=== PATIENT | male | born 1990 | race Caucasian/White ===

== ENCOUNTER 2018-04-22 08:04 | Emergency (ER) | payer OTHER, SELFPAY ==
[2018-04-22 08:52] VITALS: BP 120/69; PULSE 65; RESP 20; TEMP 36.7; O2SAT 99; BMI 22.4
--- NOTE | 2018-04-22 10:00 | ED.EAR ---
HPI - Ear Problem General Chief complaint: Ear Stated complaint: rt ear infection Time Seen by Provider: 04/22/18 09:42 Source: patient Mode of arrival: ambulatory Limitations: no limitations History of Present Illness HPI Narrative: Patient is a 27-year-old male who presents with right ear pain has been ongoing since this morning. His son has been sick with bilateral ear infections. He has had a head cold and sinus congestion as well. Has no cough. MD Complaint: ear pain Related Data Previous Rx's Medication Instructions Recorded amoxicillin 500 mg PO TID 7 Days #21 cap 04/22/18 Allergies Allergy/AdvReac Type Severity Reaction Status Date / Time No Known Drug Allergies Allergy Verified 04/22/18 08:52 Review of Systems Review of Systems All systems reviewed & are unremarkable except as noted in HPI and below Constitutional Denies chills, Denies fever(s), Denies lethargy and Denies weakness ENT Ears, Nose, Mouth, and Throat: Reports as per HPI Cardiovascular Denies chest pain, Denies irregular heart rhythm, Denies lightheadedness, Denies palpitations and Denies orthopnea Gastrointestinal Gastrointestinal: Denies abdominal pain, Denies change in bowel habits, Denies diarrhea, Denies nausea and Denies vomiting Integumentary/Breasts Denies pruritus, Denies erythema, Denies rash and Denies wounds Neurologic Denies weakness Endocrine Denies palpitations [facility] Medical History Healthy adult (Acute) Social History Smoking Status: Former smoker Exam Initial Vital Signs Initial Vital Signs: Vital Signs Temperature 98.1 F 04/22/18 08:52 Pulse Rate 65 04/22/18 08:52 Respiratory Rate 20 04/22/18 08:52 Blood Pressure 120/69 04/22/18 08:52 Pulse Oximetry 99 04/22/18 08:52 GENERAL: Well-appearing, well-nourished and in no acute distress. HEENT: Head atraumatic,EOMI, pupils reactive, face symmetric, neck is supple no meningeal signs EARS: Right tympanic membrane is visualized erythematous and bulging canal is clear without discharge no pain over mastoid left ear is within normal limits PHARYNX: No erythema, no tonsillar exudate, no cervical lymphadenopathy CARDIOVASCULAR: Regular rate and rhythm without murmurs, rubs or gallops. RESPIRATORY: Breath sounds equal bilaterally, no wheezes rales or rhonchi. EXTREMITIES: Normal range of motion, no clubbing or edema. Neurovascularly intact NEUROLOGICAL: Alert and oriented x4.Normal gait and speech. SKIN: Warm, dry, no laceration, no petechiae, no rashes or lesions. Course Vital Signs - 8 hr 04/22/18 08:52 Temperature 98.1 F Pulse Rate 65 Respiratory Rate 20 Blood Pressure 120/69 Pulse Oximetry 99 Discharge Plan Departure Patient Disposition: Home Clinical Impression: Otitis media Discharge Date/Time: 04/22/18 10:00 Instructions: Middle Ear Infection Activity Restrictions/Additional Instructions: *You have been diagnosed with right ear infection *What to do: Rest *Continue to take medications as directed Tylenol Motrin for fever as directed Amoxicillin 500 3 times a day *Follow up with your primary care provider in 2-3 days *Return to ER if you should have any new, worsening or concerning symptoms Prescriptions: New amoxicillin 500 mg capsule 500 mg PO TID 7 Days Qty: 21 RF: 0 Referrals: [facility] [Outside]
== END 2018-04-22 10:00 | disposition home or self-care (01) ==
PROVIDERS: Emergency Provider Emergency Medicine
DX: H66.91 Otitis media, unspecified, right ear (principal)
CPT/HCPCS: 99282

== ENCOUNTER 2018-07-28 12:09 | Emergency (ER) | payer OTHER, SELFPAY ==
[2018-07-28 12:10] VITALS: BP 131/75; PULSE 73; RESP 18; TEMP 37.1; O2SAT 100
--- NOTE | 2018-07-28 12:24 | ED.URI ---
HPI - URI/Sore Throat <PABLO Guzman - Last Filed: 07/28/18 21:44> General Chief Complaint: Upper Respiratory Symptoms Stated Complaint: Ear and sinus infection Time Seen by Provider: 07/28/18 12:22 Source: patient Mode of arrival: ambulatory Limitations: no limitations History of Present Illness HPI Narrative: 27-year-old healthy male that is a nonsmoker here for complaint of cough and nasal congestion and pain into his sinus area and into his teeth over the past week. He states he has had a fever. He has had purulent nasal drainage. Also has pain to his left ear. He has been using Mucinex and Sudafed at home for his symptoms. He reports that his family has had cold-like symptoms as well. Positive p.o. intake. He denies any drainage from the left ear. No other concerns or complaints at this time. MD Complaint: fever, nasal congestion and sinus pain Related Data Previous Rx's Medication Instructions Recorded amoxicillin-pot clavulanate 1 tab PO BID #14 tab 07/28/18 Allergies Allergy/AdvReac Type Severity Reaction Status Date / Time No Known Drug Allergies Allergy Verified 04/22/18 08:52 Review of Systems <PABLO Guzman - Last Filed: 07/28/18 21:44> Constitutional Denies chills, Reports fever(s), Denies lethargy and Denies weakness Eyes Denies change in vision, Denies eye discharge, Denies irritation and Denies loss of vision ENT Comments: Nasal congestion and sinus pain with left ear pain Cardiovascular Denies chest pain, Denies irregular heart rhythm, Denies lightheadedness, Denies palpitations, Denies dyspnea, Denies dyspnea on exertion and Denies orthopnea Respiratory Reports cough, Denies dyspnea, Denies dyspnea on exertion and Denies wheezing Gastrointestinal Gastrointestinal: Denies abdominal pain, Denies change in bowel habits, Denies diarrhea, Denies nausea and Denies vomiting Genitourinary Denies hematuria, Denies flank pain, Denies urinary incontinence and Denies urinary urgency Musculoskeletal Denies back pain, Denies muscle weakness, Denies numbness and Denies tingling Integumentary/Breasts Denies pruritus, Denies erythema, Denies rash and Denies wounds Neurologic Denies confusion, Denies loss of vision, Denies numbness, Denies tingling and Denies weakness Psychiatric Denies anxiety, Denies confusion, Denies depression, Denies homicidal ideation and Denies suicidal ideation Endocrine Denies palpitations Hematologic/Lymphatic Denies easy bruising Allergic/Immunologic Denies wheezing Exam <PABLO Guzman - Last Filed: 07/28/18 21:44> Initial Vital Signs Initial Vital Signs: Vital Signs Temperature 98.7 F 07/28/18 12:10 Pulse Rate 73 07/28/18 12:10 Respiratory Rate 18 07/28/18 12:10 Blood Pressure 131/75 07/28/18 12:10 Pulse Oximetry 100 07/28/18 12:10 HENMT Ears: TM normal on the right and left TM abnormal (Left tympanic membrane is erythematous and bulging) Face and sinus: tenderness (Tenderness to bilateral maxillary sinus area with pain radiating in to his upper teeth) Mouth: oral mucosae normal, oropharynx normal and moist mucous membranes Eyes Conjunctivae: conjunctivae normal Sclera: sclerae normal Pupils: PERRL EOM: EOM intact bilaterally Neck Neck: normal visual inspection, trachea midline, No lymphadenopathy, No midline deformity and No JVD Lymphatic: No lymphedema Resp Effort & Inspection: normal respiratory effort, able to speak in complete sentences, no respiratory distress and no use of accessory muscles Auscultation: clear to auscultation bilaterally, no rales, no rhonchi and no wheezes Cardio Rate: regular rate Rhythm: regular rhythm Heart Sounds: no click, no gallops, no murmurs and no rubs Skin General: no rashes or lesions noted, No jaundice and No petechiae Neuro General: alert, oriented x3, gait normal and no focal motor deficits Speech: speech normal <Shaila Clark DO - Last Filed: 07/31/18 07:17> Initial Vital Signs Initial Vital Signs: Vital Signs Temperature 98.7 F 07/28/18 12:10 Pulse Rate 73 07/28/18 12:10 Respiratory Rate 18 07/28/18 12:10 Blood Pressure 131/75 07/28/18 12:10 Pulse Oximetry 100 07/28/18 12:10 Course <PABLO Guzman - Last Filed: 07/28/18 21:44> Vital Signs - 8 hr 07/28/18 12:10 Temperature 98.7 F Pulse Rate 73 Respiratory Rate 18 Blood Pressure 131/75 Pulse Oximetry 100 <Shaila Clark DO - Last Filed: 07/31/18 07:17> Vital Signs - 8 hr 07/28/18 12:10 Temperature 98.7 F Pulse Rate 73 Respiratory Rate 18 Blood Pressure 131/75 Pulse Oximetry 100 MDM - URI/Sore Throat <PABLO Guzman - Last Filed: 07/28/18 21:44> [facility] Narrative Medical decision making narrative: Signs and symptoms present as viral upper respiratory infection with secondary bacterial sinusitis and left otitis media. He is placed on Augmentin. Saline irrigation to nasal passages to help with congestion along with hot showers. He may continue to use the Mucinex as prescribed. Is recommended for him to stop taking the Sudafed has been using the Sudafed over the past 5 days. Plenty of fluids. [id number] Tylenol or Motrin as needed for any discomfort. Follow up with primary care provider. Return emergency room for worsening symptoms. Discharge Plan Departure Patient Disposition: Home Clinical Impression: Sinusitis, Upper respiratory infection, Acute left otitis media Discharge Date/Time: 07/28/18 13:18 Interventions: ED Discharge Assessment Last Done: 07/28/18 13:17 Instructions: DI for Sinusitis Activity Restrictions/Additional Instructions: Signs and symptoms presents as a viral upper respiratory infection with secondary bacterial sinusitis and a left ear infection. Urine placed on an antibiotic called Augmentin use as directed. Plenty of fluids. Saline irrigation and nasal passages help with congestion. May continue to use the Mucinex. Stop using the Sudafed. Use [id number] Tylenol or Motrin as needed for any discomfort. Hot showers to also help with congestion. Follow up with primary care provider later this week. For any worsening symptoms return to the emergency room. Prescriptions: New amoxicillin-pot clavulanate 875-125 mg tablet 1 tab PO BID Qty: 14 RF: 0 Referrals: [facility] [Provider Group] <Shaila Clark DO - Last Filed: 07/31/18 07:17> Cosign ED Attending Cosignature Attestation: I was immediately available in the department for consultation. Documentation has been reviewed. I agree with assessment and plan.
[2018-07-28 13:12] VITALS: BP 121/76; PULSE 70; RESP 14; TEMP 37.5; O2SAT 100
== END 2018-07-28 13:18 | disposition home or self-care (01) ==
PROVIDERS: Emergency Provider Nurse Practitioner Family
DX: J32.9 Chronic sinusitis, unspecified (principal); J06.9 Acute upper respiratory infection, unspecified; H66.92 Otitis media, unspecified, left ear
CPT/HCPCS: 99282

== ENCOUNTER 2018-08-10 07:51 | Emergency (ER) | payer OTHER, SELFPAY ==
[2018-08-10 07:58] VITALS: BP 109/61; PULSE 82; RESP 18; TEMP 36.9; O2SAT 99; BMI 22.4
--- NOTE | 2018-08-10 08:13 | ED.EAR ---
HPI - Ear Problem General Chief complaint: Ear Stated complaint: ear infec. Time Seen by Provider: 08/10/18 08:13 Source: patient Mode of arrival: ambulatory Limitations: no limitations History of Present Illness HPI Narrative: Otherwise healthy 27-year-old male here for evaluation of right ear pain. Patient states that he has been seen in the past and diagnosed with an ear infection. Has been on Augmentin in the past. Has been on Claritin in the past. He is not currently taking any medications. He states that for the past couple days he has had a return in the pressure in his right ear. No fevers. Does have some sinus congestion. No sore throat. Does have a consult in to see ear nose and throat but has not seen them to this point. Related Data Previous Rx's Medication Instructions Recorded amoxicillin-pot clavulanate 1 tab PO BID #14 tab 07/28/18 azithromycin See Label Instructions .ROUTE 08/10/18 .COMPLEX #6 tab cetirizine [Zyrtec] 10 mg PO DAILY #30 cap 08/10/18 fluticasone [Flonase Allergy 2 spray NASAL DAILY #9.9 gram 08/10/18 Relief] Allergies Allergy/AdvReac Type Severity Reaction Status Date / Time No Known Drug Allergies Allergy Verified 04/22/18 08:52 Review of Systems Constitutional Denies fever(s) and Denies headache(s) Eyes Denies blurry vision ENT Ears, Nose, Mouth, and Throat: Denies vertigo, Denies dizziness and Denies headache(s) Comments: Right ear fullness and sinus congestion us with Respiratory Denies cough Gastrointestinal Gastrointestinal: Denies abdominal pain Integumentary/Breasts Denies rash Neurologic Denies vertigo, Denies dizziness and Denies headache(s) [facility] Social History Smoking Status: Former smoker Exam Initial Vital Signs Initial Vital Signs: Vital Signs Temperature 98.5 F 08/10/18 07:58 Pulse Rate 82 08/10/18 07:58 Respiratory Rate 18 08/10/18 07:58 Blood Pressure 109/61 08/10/18 07:58 Pulse Oximetry 99 08/10/18 07:58 Const General: cooperative, healthy appearing, comfortable, well developed, well groomed and No acute distress Orientation: alert, awake and oriented x3 HENMT Head: normal to inspection and normocephalic Ears: other (Left tympanic membrane bulging however not erythematous. Right tympanic membrane bulging and erythematous.) Neck Lymphatic: No lymphadenopathy Resp Effort & Inspection: normal respiratory effort Cardio Rate: regular rate Skin Lesions: no lesions Neuro General: alert, awake and oriented x3 Extrem General: normal to inspection and capillary refill normal Course Vital Signs - 8 hr 08/10/18 07:58 Temperature 98.5 F Pulse Rate 82 Respiratory Rate 18 Blood Pressure 109/61 Pulse Oximetry 99 Medical Decision Making MDM Narrative Medical decision making narrative: Patient with physical exam is consistent with a right acute otitis media. Also has serous otitis media on the left. He is not currently undergoing any decongestants. A long discussion with the patient regarding his symptoms. Will send him home with a prescription for Zyrtec and also Flonase. Informed him that he should be taking his medications on a daily basis for the next couple days. Also sent home with a prescription for antibiotics. He was informed that if his symptoms do not improve he should fill this prescription and start taking it. He was given return precautions. Instructed to follow up with his primary care doctor. He expressed understanding and agreement plan. Discharge Plan Departure Patient Disposition: Home Clinical Impression: Otitis media Instructions: Ear Infections (Alternative Therapy), Middle Ear Infection Activity Restrictions/Additional Instructions: Recommend you take the Zyrtec and the Flonase for the next couple days like we discussed. If your symptoms do not improve or worsen then start taking the antibiotics. Keep all of her scheduled medical appointments. Prescriptions: New azithromycin 250 mg tablet See Label Instructions .ROUTE .COMPLEX Qty: 6 RF: 0 fluticasone [Flonase Allergy Relief] 50 mcg/actuation spray,suspension 2 spray NASAL DAILY Qty: 9.9 RF: 0 cetirizine [Zyrtec] 10 mg capsule 10 mg PO DAILY Qty: 30 RF: 0 No Action amoxicillin-pot clavulanate 875-125 mg tablet 1 tab PO BID Qty: 14 RF: 0
== END 2018-08-10 08:42 | disposition home or self-care (01) ==
PROVIDERS: Emergency Provider Emergency Medicine
DX: H66.90 Otitis media, unspecified, unspecified ear (principal)
CPT/HCPCS: 99282

== ENCOUNTER 2018-08-18 10:14 | Emergency (ER) | payer OTHER, SELFPAY ==
[2018-08-18 10:48] VITALS: BP 122/78; PULSE 78; RESP 18; TEMP 36.8; O2SAT 98; BMI 22.4
--- NOTE | 2018-08-18 11:04 | ED_ITS ---
HPI - Abdominal Pain General Chief Complaint: Abdominal Pain Stated Complaint: states stomach ulcers [id number], loose bloody stool Time Seen by Provider: 08/18/18 11:03 Source: patient Mode of arrival: ambulatory Limitations: no limitations History of Present Illness HPI narrative: Patient is a 27-year-old male here for evaluation of 1 month of diarrhea and then black colored stools for the past couple days. He also has been taking nonsteroidal anti-inflammatories. He also occasionally drinks alcohol. He has been on antibiotics multiple times in the past month for ear infections. He states he does have a history of ulcers. He has some lower abdominal pain. He states that it is not bright red blood. His symptoms do not change when he has bowel movements. Has not tried anything for symptoms prior to arrival. Related Data Previous Rx's Medication Instructions Recorded amoxicillin-pot clavulanate 1 tab PO BID #14 tab 07/28/18 azithromycin See Label Instructions .ROUTE 08/10/18 .COMPLEX #6 tab cetirizine [Zyrtec] 10 mg PO DAILY #30 cap 08/10/18 fluticasone [Flonase Allergy 2 spray NASAL DAILY #9.9 gram 08/10/18 Relief] ranitidine HCl [Zantac] 150 mg PO BID #60 tab 08/18/18 Allergies Allergy/AdvReac Type Severity Reaction Status Date / Time No Known Drug Allergies Allergy Verified 08/18/18 10:53 Review of Systems Constitutional Denies fever(s) Cardiovascular Denies chest pain and Denies dyspnea Respiratory Denies dyspnea Gastrointestinal Gastrointestinal: Reports abdominal pain, Reports diarrhea, Denies nausea and Denies vomiting Genitourinary Denies dysuria Musculoskeletal Denies myalgias and Denies arthralgias Integumentary/Breasts Denies rash Neurologic Denies behavioral changes Psychiatric Denies behavioral changes Hematologic/Lymphatic Comments: Not on anticoagulation Allergic/Immunologic Denies urticaria PFSH Social History Smoking Status: Former smoker Exam Initial Vital Signs Initial Vital Signs: Vital Signs Temperature 98.3 F 08/18/18 10:48 Pulse Rate 78 08/18/18 10:48 Respiratory Rate 18 08/18/18 10:48 Blood Pressure 122/78 08/18/18 10:48 Pulse Oximetry 98 08/18/18 10:48 Const General: cooperative, healthy appearing, comfortable, well developed, well groomed and No acute distress Orientation: alert, awake and oriented x3 HENMT Head: normal to inspection and normocephalic Resp Effort & Inspection: normal respiratory effort Auscultation: clear to auscultation bilaterally Cardio Rate: regular rate Rhythm: regular rhythm GI Inspection: non-distended Palpation: soft, No firm, No guarding, No rigid and No tender Back/Spine/Pelvis Back: No CVA tenderness Skin Lesions: no lesions Rashes: no rashes Neuro General: alert, awake and oriented x3 Cognition: normal cognition Speech: speech normal Extrem General: normal to inspection and capillary refill normal Psych Appearance: grossly normal and well kempt Course Orders Ordered: Discontinued Medications Sodium Chloride (Normal Saline 0.9%) 1,000 mls @ 1,000 mls/hr IV BOLUS ONE Stop: 08/18/18 12:23 Last Infusion: 08/18/18 13:21 Dose: 0 mls/hr Infusion: 08/18/18 12:42 Dose: 1,000 mls/hr Infusion: 08/18/18 12:15 Dose: 0 mls/hr Admin: 08/18/18 11:45 Dose: 1,000 mls/hr Vital Signs - 8 hr 08/18/18 10:48 Temperature 98.3 F Pulse Rate 78 Respiratory Rate 18 Blood Pressure 122/78 Pulse Oximetry 98 MDM - Abdominal Pain Lab Data Attestation: I reviewed the patient's lab results. Result diagrams: 08/18/18 11:40 08/18/18 11:40 Lab Results 08/18/18 08/18/18 Range/Units 11:40 11:40 WBC 6.6 (4.5-11.0) X10^3/uL RBC 5.38 (4.5-5.9) X10^6/uL Hgb 16.1 (13.5-17.5) g/dL Hct 47.5 (41-53) % MCV 88.4 (80-100) fL MCH 29.9 (26-34) PG MCHC 33.8 (30-36) % RDW 14.0 (11.6-14.8) % Plt Count 225 (150-400) X10^3/uL Neut % (Auto) 66.5 (50-75) % Lymph % (Auto) 22.0 L (25-40) % [place] % (Auto) 9.1 (3-14) % Eos % (Auto) 1.9 L (2-4) % Baso % (Auto) 0.5 (0-2) % Neut # (Auto) 4400 (0785-6628) /uL Lymph # (Auto) 1400 (5901-3749) /uL [place] # (Auto) 600 (0-900) /uL Eos # (Auto) 100 (0-450) /uL Baso # (Auto) 0 (0-100) /uL Sodium 140 (137-145) mmol/L Potassium 4.5 (3.4-5.1) mmol/L Chloride 104 (98-107) mmol/L Carbon Dioxide 28 (22-32) mmol/L BUN 11 (9-20) mg/dL Creatinine 0.80 (0.66-1.25) mg/dL Estimated GFR > 60.0 (>60) mL/min BUN/Creatinine Ratio 13.8 (6-22) Glucose 91 (70-100) mg/dL Calcium 9.3 (8.4-10.2) mg/dL Total Bilirubin 0.5 (0.2-1.3) mg/dL AST 30 (17-59) IU/L ALT 32 (21-72) IU/L Alkaline Phosphatase 72 (38-126) U/L Total Protein 7.6 (6.3-8.2) g/dL Albumin 4.5 (3.5-5.0) g/dL Globulin 3.1 (1.7-4.1) g/dL Albumin/Globulin Ratio 1.5 (1.0-2.8) Lipase 44 (23-300) U/L Imaging Data CT scan - abdomen: Radiologist's impression: PROCEDURE: CT ABDOMEN PELVIS W CON INDICATIONS: Left-sided abdominal pain TECHNIQUE: After the administration of intravenous contrast, 5 mm thick sections acquired from the diaphragm to the symphysis. 5 mm coronal and sagittal reformats were acquired. For radiation dose reduction, the following was used: automated exposure control, adjustment of mA and/or kV according to patient size. COMPARISON: None. FINDINGS: Image quality: Excellent. ABDOMEN: Lung bases: Lung bases are clear. Heart size is normal. Solid organs: Liver is normal in size and enhancement. Gallbladder is within normal limits. Biliary system is non dilated. Pancreas enhances normally. Spleen is normal in size and enhancement. No adrenal nodules. Kidneys demonstrate normal size and enhancement, without hydronephrosis. Peritoneum and bowel: Bowel loops demonstrate normal wall thickness and caliber. No free fluid or air. Appendix not seen. No evidence of appendicitis. Nodes and vessels: No retroperitoneal or mesenteric adenopathy by size criteria. Multiple mildly prominent mesenteric lymph nodes are present measuring less than 10 mm short axis. Retroaortic left renal vein. Aorta and inferior vena cava are normal in size. Miscellaneous: No ventral hernias. PELVIS: Genitourinary: Bladder wall thickness is normal. Miscellaneous: No inguinal hernias or adenopathy. Bones: No suspicious bony lesions. No vertebral body compression fractures. IMPRESSION: 1. Findings consistent with mesenteric adenitis/gastroenteritis in the appropriate clinical setting. 2. Appendix not seen. No evidence of appendicitis. Dictated by: José Miguel Reardon M.D. on 08/18/2018 at 12:30 Approved by: José Miguel Reardon M.D. on 08/18/2018 at 12:32 MDM Narrative Medical decision making narrative: Patient is nontoxic appearing. Has a very benign abdomen. Has a normal white blood cell count and is afebrile. CT scan shows no signs of obstruction. I did consider C diff given the fact that he has been on multiple antibiotics over the past month however in his clinical setting and also in the setting of a normal white blood cell count I feel that this is unlikely. The patient was unable to provide us a stool sample here in the ER. CT scan does show a which looks like an adenitis. Do not feel like antibiotics are warranted in this case. I did inform the patient that he needed to stop the anti-inflammatories and also the alcohol. Will start him on Zantac. Informed him that he needed to contact his primary doctor to discuss further evaluation and treatment. Patient is not anemic. Did not feel like he needs emergently admitted to the hospital for GI consultation. Patient expressed understanding and agreement with plan. Discharge Plan Departure Patient Disposition: Home Clinical Impression: Diarrhea, Melena Discharge Date/Time: 08/18/18 13:24 Interventions: ED Discharge Assessment Last Done: 08/18/18 13:23 Instructions: Diarrhea Activity Restrictions/Additional Instructions: I recommend you start taking the medication that you were given a prescription for today. I also recommend that you stop taking the anti-inflammatories such as Motrin or Naprosyn. Increase your fluid intake. You can try probiotics like we discussed. Contact your primary doctor for a follow-up. Return to the emergency department for any new or worsening symptoms Prescriptions: New ranitidine HCl [Zantac] 150 mg tablet 150 mg PO BID Qty: 60 RF: 0 No Action azithromycin 250 mg tablet See Label Instructions .ROUTE .COMPLEX Qty: 6 RF: 0 fluticasone [Flonase Allergy Relief] 50 mcg/actuation spray,suspension 2 spray NASAL DAILY Qty: 9.9 RF: 0 cetirizine [Zyrtec] 10 mg capsule 10 mg PO DAILY Qty: 30 RF: 0 amoxicillin-pot clavulanate 875-125 mg tablet 1 tab PO BID Qty: 14 RF: 0
--- NOTE | 2018-08-18 11:25 | DI.CT.S_ITS ---
PROCEDURE: CT ABDOMEN PELVIS W CON INDICATIONS: Left-sided abdominal pain TECHNIQUE: After the administration of intravenous contrast, 5 mm thick sections acquired from the diaphragm to the symphysis. 5 mm coronal and sagittal reformats were acquired. For radiation dose reduction, the following was used: automated exposure control, adjustment of mA and/or kV according to patient size. COMPARISON: None. FINDINGS: Image quality: Excellent. ABDOMEN: Lung bases: Lung bases are clear. Heart size is normal. Solid organs: Liver is normal in size and enhancement. Gallbladder is within normal limits. Biliary system is non dilated. Pancreas enhances normally. Spleen is normal in size and enhancement. No adrenal nodules. Kidneys demonstrate normal size and enhancement, without hydronephrosis. Peritoneum and bowel: Bowel loops demonstrate normal wall thickness and caliber. No free fluid or air. Appendix not seen. No evidence of appendicitis. Nodes and vessels: No retroperitoneal or mesenteric adenopathy by size criteria. Multiple mildly prominent mesenteric lymph nodes are present measuring less than 10 mm short axis. Retroaortic left renal vein. Aorta and inferior vena cava are normal in size. Miscellaneous: No ventral hernias. PELVIS: Genitourinary: Bladder wall thickness is normal. Miscellaneous: No inguinal hernias or adenopathy. Bones: No suspicious bony lesions. No vertebral body compression fractures. IMPRESSION: 1. Findings consistent with mesenteric adenitis/gastroenteritis in the appropriate clinical setting. 2. Appendix not seen. No evidence of appendicitis. Dictated by: José Miguel Reardon M.D. on 08/18/2018 at 12:30 Approved by: José Miguel Reardon M.D. on 08/18/2018 at 12:32
[2018-08-18] MEDS: SODIUM CHLORIDE 0.9% 1,000 ML 1000 ML IV (11:45)
[2018-08-18 11:47] LABS: Add Manual Diff / Slide Review NO; Basophils Absolute Auto 0 /uL (0-100); Basophils Percent Auto 0.5 % (0-2); Eosinophils Absolute Auto 100 /uL (0-450); Eosinophils Percent Auto 1.9 % (2-4); Hematocrit 47.5 % (41-53); Hemoglobin 16.1 g/dL (13.5-17.5); Lymphocytes Absolute Auto 1400 /uL (1100-4500); Mean Corpuscular HGB Conc 33.8 % (30-36); Mean Corpuscular Hemoglobin 29.9 PG (26-34); Mean Corpuscular Volume 88.4 fL (80-100); Monocytes Absolute Auto 600 /uL (0-900); Monocytes Percent Auto 9.1 % (3-14); Neutrophils Absolute Auto 4400 /uL (1500-7000); Neutrophils Percent Auto 66.5 % (50-75); Platelet Count 225 X10^3/uL (150-400); Red Blood Cell Count 5.38 X10^6/uL (4.5-5.9); White Blood Cell Count 6.6 X10^3/uL (4.5-11.0)
[2018-08-18 12:00] VITALS: BP 110/63; PULSE 71; RESP 18; O2SAT 100
[2018-08-18 12:00] LABS: Alanine Aminotransferase 32 IU/L (21-72); Albumin 4.5 g/dL (3.5-5.0); Albumin Globulin Ratio 1.5 (1.0-2.8); Alkaline Phosphatase 72 U/L (38-126); Aspartate Aminotransferase 30 IU/L (17-59); BUN Creatinine Ratio 13.8 (6-22); Bilirubin Total 0.5 mg/dL (0.2-1.3); Blood Urea Nitrogen 11 mg/dL (9-20); Calcium 9.3 mg/dL (8.4-10.2); Carbon Dioxide 28 mmol/L (22-32); Chloride 104 mmol/L (98-107); Estimated Glomerular Filt Rate > 60.0 mL/min (>60); Globulin 3.1 g/dL (1.7-4.1); Glucose 91 mg/dL (70-100); HEMOLYSIS < 15 (0-50); Lipase 44 U/L (23-300); Potassium 4.5 mmol/L (3.4-5.1); Sodium 140 mmol/L (137-145); Total Protein 7.6 g/dL (6.3-8.2)
[2018-08-18 13:00] VITALS: BP 116/69
[2018-08-18 13:23] VITALS: BP 116/69; PULSE 72; RESP 12; O2SAT 100
== END 2018-08-18 13:24 | disposition home or self-care (01) ==
PROVIDERS: Emergency Provider Emergency Medicine
DX: K92.1 Melena (principal); R19.7 Diarrhea, unspecified
CPT/HCPCS: 36591; 74177; 80053; 83690; 85025; 96360; 99283; 99285; Q9967

== ENCOUNTER 2018-10-08 08:10 | Emergency (ER) | payer OTHER, SELFPAY ==
[2018-10-08 08:18] VITALS: BP 118/81; PULSE 81; RESP 18; TEMP 37.1; O2SAT 99; BMI 22.4
--- NOTE | 2018-10-08 08:48 | ED_ITS ---
HPI - URI/Sore Throat General Chief Complaint: Upper Respiratory Symptoms Stated Complaint: congested sore throat x2 days Time Seen by Provider: 10/08/18 08:20 Source: patient Mode of arrival: ambulatory Limitations: no limitations History of Present Illness HPI Narrative: Patient is a 28-year-old male currently being treated for recurrent ear infections and prednisone being followed by ENT. He supposed be on antibiotics and steroids for 3 weeks he has only been on it for a week however he feels like it has gone to his chest. He has some head pressure cough and congestion last night he he was coughing up a punch. He has no shortness of breath. His family recently had upper respiratory like symptoms diagnosed with bronchitis. MD Complaint: fever, cough and nasal congestion Severity: mild Relieving factors: nothing Exacerbating factors: nothing Related Data Previous Rx's Medication Instructions Recorded amoxicillin-pot clavulanate 1 tab PO BID #14 tab 07/28/18 azithromycin See Rx Instructions .ROUTE 08/10/18 .COMPLEX #6 tab cetirizine [Zyrtec] 10 mg PO DAILY #30 cap 08/10/18 fluticasone propionate [Flonase 2 spray NASAL DAILY #9.9 gram 08/10/18 Allergy Relief] ranitidine HCl [Zantac] 150 mg PO BID #60 tab 08/18/18 Allergies Allergy/AdvReac Type Severity Reaction Status Date / Time No Known Drug Allergies Allergy Verified 08/18/18 10:53 Review of Systems Review of Systems GENERAL: Denies chills, fatigue, malaise, fever, sweats, travel HEENT: See HPI RESPIRATORY: + cough, chest congestion CARDIOVASCULAR: Denies chest pain, palpitations, orthopnea, edema GASTROINTESTINAL: Denies nausea, vomiting, abdominal pain, diarrhea, constipation, melena. : Denies dysuria, frequency, incontinence, hematuria, urinary retention, flank pain. MUSCULOSKELETAL: Denies weakness, joint pain, or bony pain SKIN: No rash, no erythema, no pruritus NEUROLOGIC: Denies weakness, dizziness, headache, numbness, change in speech, confusion PSYCHIATRIC: No concerning psychosocial issues. 12 point review of systems is negative except for those stated above and HPI [facility] Medical History History of recurrent ear infection (Acute) Healthy adult (Acute) Social History Smoking Status: Former smoker Social History Smoking Status: Former smoker Exam Initial Vital Signs Initial Vital Signs: Vital Signs Temperature 98.7 F 10/08/18 08:18 Pulse Rate 81 10/08/18 08:18 Respiratory Rate 18 10/08/18 08:18 Blood Pressure 118/81 10/08/18 08:18 Pulse Oximetry 99 10/08/18 08:18 GENERAL: Well-appearing totally normal young male no acute distress HEENT: Head atraumatic,EOMI, pupils reactive, face symmetric, moist mucous membranes EARS: Right ear is erythematous left ear within normal limits PHARYNX: No erythema, no tonsillar exudate, no cervical lymphadenopathy CARDIOVASCULAR: Regular rate and rhythm without murmurs, rubs or gallops. RESPIRATORY: Breath sounds equal bilaterally, no wheezes rales or rhonchi. ABDOMEN: Soft, nontender. Normoactive bowel sounds all 4 quadrants. No guarding or rebound. EXTREMITIES: Normal range of motion, no clubbing or edema. Neurovascularly intact NEUROLOGICAL: Alert and oriented x4.Normal gait and speech. SKIN: Warm, dry, no laceration, no petechiae, no rashes or lesions. Course Orders Ordered: ED Orders 10/08/18 08:44 Influenza A and B by PCR Rapid Stat Vital Signs - 8 hr 10/08/18 08:18 Temperature 98.7 F Pulse Rate 81 Respiratory Rate 18 Blood Pressure 118/81 Pulse Oximetry 99 MDM - URI/Sore Throat Lab Data Attestation: I reviewed the patient's lab results. Lab Results 10/08/18 Range/Units 08:44 Influenza A & B (PCR) Negative (Negative) MDM Narrative Medical decision making narrative: Patient appears nontoxic awake alert oriented. At this time no indication for any blood work or x-ray. Influenza negative he likely has some other upper respiratory viral infection. His family members with similar symptoms as well. Discharge Plan Departure Patient Disposition: Home Clinical Impression: Upper respiratory infection Qualifiers: URI type: unspecified viral URI Qualified Code(s): J06.9 - Acute upper respiratory infection, unspecified Instructions: DI for Acute Bronchitis Activity Restrictions/Additional Instructions: *You have been diagnosed with upper respiratory infection *What to do: At this time influenza is negative. He likely have a viral syndrome his antibiotics will not help. This will run its course over the next is 5-10 days. Fever control, increasing fluid *Continue to take medications as directed *Follow up with your primary care provider in 2-3 days *Return to ER if you should have decreased oral intake, increasing shortness of breath or cough or any new, worsening or concerning symptoms Prescriptions: No Action azithromycin 250 mg tablet See Rx Instructions .ROUTE .COMPLEX Qty: 6 RF: 0 fluticasone propionate [Flonase Allergy Relief] 50 mcg/actuation spray,suspension 2 spray NASAL DAILY Qty: 9.9 RF: 0 cetirizine [Zyrtec] 10 mg capsule 10 mg PO DAILY Qty: 30 RF: 0 amoxicillin-pot clavulanate 875-125 mg tablet 1 tab PO BID Qty: 14 RF: 0 ranitidine HCl [Zantac] 150 mg tablet 150 mg PO BID Qty: 60 RF: 0
[2018-10-08 09:08] LABS: Influenza A and B by PCR Rapid Negative (Negative)
== END 2018-10-08 09:20 | disposition home or self-care (01) ==
PROVIDERS: Emergency Provider Emergency Medicine
DX: J06.9 Acute upper respiratory infection, unspecified (principal)
CPT/HCPCS: 87400; 99282

== ENCOUNTER 2019-09-24 08:16 | Emergency (ER) | payer OTHER, SELFPAY ==
[2019-09-24 08:36] VITALS: BP 120/64; PULSE 80; RESP 12; TEMP 36.3; O2SAT 98
--- NOTE | 2019-09-24 08:45 | ED.NAVMDI ---
HPI - Nausea/Vomiting/Diarrhea General Chief complaint: Nausea/Vomiting/Diarrhea Stated complaint: throwing up all night Time Seen by Provider: 09/24/19 08:26 Source: patient Mode of arrival: Ambulatory History of Present Illness HPI Narrative: 28-year-old gentleman with seasonal allergies and a history of tobacco abuse presents with vomiting and diarrhea for the last 24 hours. He has had upper respiratory symptoms for the last week and a half seem to be improving but then developed fevers and myalgias over the last 24 hours than vomiting and profuse diarrhea. No blood. He is slightly dizzy when he stands up in complains of persistent abdominal pain from both the diarrhea and vomiting. Nobody else at home is sick and he lives with the and 2 small children. Describes no chest pain, shortness of breath, rashes, recent travel or unusual exposures including camping Related Data Previous Rx's Medication Instructions Recorded cetirizine [Zyrtec] 10 mg PO DAILY #30 cap 08/10/18 fluticasone propionate [Flonase 2 spray NASAL DAILY #9.9 gram 08/10/18 Allergy Relief] ranitidine HCl [Zantac] 150 mg PO BID #60 tab 08/18/18 ondansetron 4 mg PO Q8H PRN #14 tab 09/24/19 Allergies Allergy/AdvReac Type Severity Reaction Status Date / Time No Known Drug Allergies Allergy Verified 08/18/18 10:53 Review of Systems Review of Systems Narrative: All systems reviewed and are unremarkable except as noted in HPI and below Patient History Social History Smoking Status: Former smoker Smoking Status: Former smoker alcohol intake frequency: a few times a week Substance Use Type: does not use Exam Narrative Exam Narrative: General: Mildly ill appearing, in no acute distress. Able to give a complete and coherent history. Well-nourished well-developed HEENT: Moist mucous membranes, normal sclera with reactive pupils, Neck: supple Respiratory: Lungs are clear to auscultation, no wheezing no rales no rhonchi. Full and symmetrical air movement Cardiac: Regular rate and rhythm no murmurs no bruits Abdomen: Soft mild diffuse tenderness without rebound or guarding and hyperactive bowel tones, no flank pain Skin: Warm and dry, no rashes Neurologic: Grossly neurologically intact with no obvious asymmetries or abnormalities Extremities: No trauma, well perfused Psych: Cooperative, appropriate insight and affect Initial Vital Signs Initial Vital Signs: Vital Signs Temperature 97.4 F L 09/24/19 08:36 Pulse Rate 80 09/24/19 08:36 Respiratory Rate 12 09/24/19 08:36 Blood Pressure 120/64 09/24/19 08:36 Pulse Oximetry 98 09/24/19 08:36 Course Orders Ordered: ED Orders 09/24/19 08:25 Complete Blood Count AUTO DIFF Stat Comprehensive Metabolic Panel Stat 09/24/19 11:52 GI Panel (Film Array) Stat Discontinued Medications Sodium Chloride (Normal Saline 0.9%) 1,000 mls @ 1,000 mls/hr IV BOLUS ONE Stop: 09/24/19 09:34 Last Infusion: 09/24/19 10:06 Dose: 0 mls/hr Documented by: Admin: 09/24/19 09:12 Dose: 1,000 mls/hr Documented by: KERVIN Ondansetron HCl (Zofran) 4 mg IV NOW ONE Stop: 09/24/19 08:36 Last Admin: 09/24/19 09:12 Dose: 4 mg Documented by: KERVIN Vital Signs Vital signs: Vital Signs - 8 hr 09/24/19 08:36 09/24/19 12:38 Temperature 97.4 F L Pulse Rate 80 69 Respiratory Rate 12 Blood Pressure 120/64 111/62 Pulse Oximetry 98 97 MDM - Nausea/Vomiting/Diarrhea Medical Records Attestation: I reviewed the patient's medical records. Lab Data Attestation: I reviewed the patient's lab results. Result diagrams: 09/24/19 08:25 09/24/19 08:25 Labs: Lab Results 09/24/19 09/24/19 09/24/19 Range/Units 08:25 08:25 11:52 WBC 6.8 (4.5-11.0) X10^3/uL RBC 5.34 (4.5-5.9) X10^6/uL Hgb 16.5 (13.5-17.5) g/dL Hct 47.7 (41-53) % MCV 89.3 (80-100) fL MCH 31.0 (26-34) PG MCHC 34.7 (30-36) % RDW 13.1 (11.6-14.8) % Plt Count 205 (150-400) X10^3/uL Neut % (Auto) 81.8 H (50-75) % Lymph % (Auto) 6.0 L (25-40) % [place] % (Auto) 11.4 (3-14) % Eos % (Auto) 0.4 L (2-4) % Baso % (Auto) 0.4 (0-2) % Neut # (Auto) 5600 (3903-2963) /uL Lymph # (Auto) 400 L (8927-3171) /uL [place] # (Auto) 800 (0-900) /uL Eos # (Auto) 0 (0-450) /uL Baso # (Auto) 0 (0-100) /uL Sodium 138 (137-145) mmol/L Potassium 4.3 (3.4-5.1) mmol/L Chloride 103 (98-107) mmol/L Carbon Dioxide 26 (22-32) mmol/L BUN 22 H (9-20) mg/dL Creatinine 0.87 (0.66-1.25) mg/dL Estimated GFR > 60.0 (>60) mL/min BUN/Creatinine Ratio 25.3 H (6-22) Glucose 113 H (70-100) mg/dL Calcium 9.3 (8.4-10.2) mg/dL Total Bilirubin 0.8 (0.2-1.3) mg/dL AST 33 (17-59) IU/L ALT 22 (<50) IU/L Alkaline Phosphatase 73 (38-126) U/L Total Protein 8.0 (6.3-8.2) g/dL Albumin 4.6 (3.5-5.0) g/dL Globulin 3.4 (1.7-4.1) g/dL Albumin/Globulin Ratio 1.4 (1.0-2.8) Stl C. cayetanensis PCR Not detected (Not Detect) Stool Rotavirus (PCR) Not detected (Not Detect) Stool Adenovirus (PCR) Not detected (Not Detect) Stool Astrovirus (PCR) Not detected (Not Detect) Stool Cryptosporidium PCR Not detected (Not Detect) Stl E.coli Shiga Tox PCR Not detected (Not Detect) St Sh/Enteroin Ecoli PCR Not detected (Not Detect) Stool E coli O157 PCR Not detected (Not Detect) Stl Enterotoxigenic E PCR Not detected (Not Detect) Stool EPEC (PCR) Not detected (Not Detect) Stl E. histolytica PCR Not detected (Not Detect) Stool Giardia Lamblia PCR Not detected (Not Detect) Stool Sapovirus (PCR) Not detected (Not Detect) Stl P. shigelloides PCR Not detected (Not Detect) St Y.enterocolitica PCR Not detected (Not Detect) Stool Vibrio (PCR) Not detected (Not Detect) Stl Vibrio cholerae PCR Not detected (Not Detect) Stl Enteroaggr Ecoli PCR Not detected (Not Detect) Stl Norovirus GI/GII PCR Detected H (Not Detect) Campylobacter (PCR) Not detected (Not Detect) C. difficile Tox (PCR) Not detected (Not Detect) Salmonella (PCR) Not detected (Not Detect) MDM Narrative Medical decision making narrative: Acute nausea vomiting and diarrhea in a 28-year-old gentleman with no specific lab abnormalities this time. He is feeling a bit better after fluids and Zofran. He has soft stool sample. Will discharge him home with prescription for Zofran to use as needed instructions to stay well hydrated and will call him at [phone] when stool results are back to see if additional treatment is required 1430 patient is called and updated with finding of norovirus. Questions are answered Discharge Plan Departure Patient Disposition: Home Clinical Impression: Gastroenteritis due to norovirus, Vomiting and diarrhea Discharge Date/Time: 09/24/19 12:39 Instructions: DI for Diarrhea and Traveler's Diarrhea -- Adult, DI for Vomiting -- Adult Activity Restrictions/Additional Instructions: Thank you for coming in today. Your blood work was quite reassuring. I will call you later today at [phone] to let you know the results of your stool sample to see if there is of bacterial issue that might need antibiotics. In the meantime, I will prescribe some Zofran to help with nausea. This prescription was electronically transmitted to [facility] in [place]. Please keep hydrated as well as your possible. If you have worsening symptoms, fevers or developing new findings, please feel free to return. I am happy to re-evaluate. I hope you heal quickly Prescriptions: New ondansetron 4 mg tablet,disintegrating 4 mg PO Q8H PRN (Reason: nausea and vomiting) Qty: 14 RF: 0 No Action fluticasone propionate [Flonase Allergy Relief] 50 mcg/actuation spray,suspension 2 spray NASAL DAILY Qty: 9.9 RF: 0 cetirizine [Zyrtec] 10 mg capsule 10 mg PO DAILY Qty: 30 RF: 0 ranitidine HCl [Zantac] 150 mg tablet 150 mg PO BID Qty: 60 RF: 0 Stand Alone Forms: Work Release Note
[2019-09-24 08:49] LABS: Add Manual Diff / Slide Review NO; Basophils Absolute Auto 0 /uL (0-100); Basophils Percent Auto 0.4 % (0-2); Eosinophils Absolute Auto 0 /uL (0-450); Eosinophils Percent Auto 0.4 % (2-4); Hematocrit 47.7 % (41-53); Hemoglobin 16.5 g/dL (13.5-17.5); Lymphocytes Absolute Auto 400 /uL (1100-4500); Mean Corpuscular HGB Conc 34.7 % (30-36); Mean Corpuscular Volume 89.3 fL (80-100); Monocytes Absolute Auto 800 /uL (0-900); Monocytes Percent Auto 11.4 % (3-14); Neutrophils Absolute Auto 5600 /uL (1500-7000); Neutrophils Percent Auto 81.8 % (50-75); Platelet Count 205 X10^3/uL (150-400); Red Blood Cell Count 5.34 X10^6/uL (4.5-5.9); Red Cell Distribution Width 13.1 % (11.6-14.8); White Blood Cell Count 6.8 X10^3/uL (4.5-11.0)
[2019-09-24 08:56] LABS: Alanine Aminotransferase 22 IU/L (<50); Albumin 4.6 g/dL (3.5-5.0); Albumin Globulin Ratio 1.4 (1.0-2.8); Alkaline Phosphatase 73 U/L (38-126); Aspartate Aminotransferase 33 IU/L (17-59); BUN Creatinine Ratio 25.3 (6-22); Bilirubin Total 0.8 mg/dL (0.2-1.3); Blood Urea Nitrogen 22 mg/dL (9-20); Calcium 9.3 mg/dL (8.4-10.2); Carbon Dioxide 26 mmol/L (22-32); Chloride 103 mmol/L (98-107); Estimated Glomerular Filt Rate > 60.0 mL/min (>60); Globulin 3.4 g/dL (1.7-4.1); Glucose 113 mg/dL (70-100); HEMOLYSIS 32 (0-50); Potassium 4.3 mmol/L (3.4-5.1); Sodium 138 mmol/L (137-145)
[2019-09-24] MEDS: SODIUM CHLORIDE 0.9% 1,000 ML 1000 ML IV (09:12)
[2019-09-24] MEDS: ONDANSETRON 4 MG/2 ML INJ IV (09:12)
[2019-09-24 12:38] VITALS: BP 111/62; PULSE 69; O2SAT 97
[2019-09-24 14:11] LABS: Adenovirus F 40/41 Not Detected (Not Detect); Astrovirus Not Detected (Not Detect); Campylobacter Not Detected (Not Detect); Clostridium difficile toxin AB Not Detected (Not Detect); Cryptosporidium Not Detected (Not Detect); Cyclospora cayetanensis Not Detected (Not Detect); Entamoeba histolytica Not Detected (Not Detect); Enteroaggregative E.coli Not Detected (Not Detect); Enteropathogenic E.coli Not Detected (Not Detect); Enterotoxigenic E.coli It/st Not Detected (Not Detect); Giardia lamblia Not Detected (Not Detect); Norovirus GI/GII Detected (Not Detect); Plesiomonsa shigelloides Not Detected (Not Detect); Rotavirus A Not Detected (Not Detect); Salmonella Not Detected (Not Detect); Sapovirus Not Detected (Not Detect); Shiga-like toxin-prod E.coli Not Detected (Not Detect); Shigella/Enteroinvasive E.coli Not Detected (Not Detect); Vibrio Not Detected (Not Detect); Vibrio cholerae Not Detected (Not Detect); Yersinia enterocolitica Not Detected (Not Detect)
== END 2019-09-24 12:39 | disposition home or self-care (01) ==
PROVIDERS: Emergency Provider Emergency Medicine
DX: A08.39 Other viral enteritis (principal); R11.10 Vomiting, unspecified; R19.7 Diarrhea, unspecified
CPT/HCPCS: 36415; 80053; 85025; 87507; 96361; 96374; 99284; J2405